=== PATIENT | female | born 1980 | race Hispanic/Latino ===

== ENCOUNTER → 2023-12-05 | Emergency (ER) | payer SELFPAY ==
[~2023-12-05] MED LIST: dexAMETHasone 10 MG/ML VIAL ONE
--- NOTE | 2023-12-05 17:31 | EDPHYS ---
Physician Documentation [facility] Name: Elda Weldon Age: 43 yrs Sex: Female : 1980 Arrival Date: 12/05/2023 Time: 17:10 Bed Waiting Private MD: ED Physician Inderjit Cavazos HPI: 12/05 17:29 This 43 yrs old Female presents to ER via Unassigned with complaints of POISON kb CHIQUITA. 17:30 Pt reports she came into contact with poison chiquita 1.5 weeks ago and has had a rash since kb then. Reports no relief with otc ointment. 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 - Social history:: Smoking status: Patient denies any tobacco usage or history of. ROS: 17:29 Constitutional: Negative for fever, chills, and weight loss, kb 17:29 Skin: Positive for rash, of the right arm and left arm, 17:29 All other systems are negative, Exam: 17:29 Constitutional: This is a well developed, well nourished patient who is awake, alert, kb and in no acute distress. Head/Face: Normocephalic, atraumatic. ENT: Moist Mucous membranes Cardiovascular: Regular rate Respiratory: Respirations even and unlabored. No increased work of breathing. Talking in full sentences MS/ Extremity: Pulses equal, no cyanosis. Neurovascular intact. Full, normal range of motion. Neuro: Awake and alert, GCS 15, oriented to person, place, time, and situation. Moves all extremities. Normal gait. 17:29 Skin: rash a moderate rash is noted, consistent with contact dermatitis, on the right arm and left arm, Vital Signs: 17:48 BP 121 / 77; Pulse 73; Resp 18 S; Temp 98(TE); Pulse Ox 99% on R/A; Weight 83.91 kg as6 (R); Height 5 ft. 4 in. (R); 17:48 Body Mass Index 31.75 (83.91 kg, 162.56 cm) as6 MDM: 17:18 Patient medically screened. kb 17:29 Differential diagnosis: impetigo, allergic reaction, parasite infection, urticaria. kb Data reviewed: vital signs, nurses notes. Counseling: I had a detailed discussion with the patient and/or guardian regarding the historical points, exam findings, and any diagnostic results supporting the discharge/admit diagnosis, the need for outpatient follow up, a family practitioner, to return to the emergency department if symptoms worsen or persist or if there are any questions or concerns that arise at home. Administered Medications: 17:40 Drug: Dexamethasone IM 10 mg IM once Route: IM; Site: right deltoid; as6 17:51 Follow up: Response: No adverse reaction as6 Disposition Summary: 12/05/23 17:31 Discharge Ordered Notes: Location: Home kb Condition: Stable kb Diagnosis - Allergic contact dermatitis due to plants, except food kb Followup: kb - With: Private Physician - When: 2 - 3 days - Reason: Recheck today's complaints, Continuance of care, Re-evaluation by your physician Followup: kb - With: Emergency Department - When: As needed - Reason: Worsening of condition Discharge Instructions: - Discharge Summary Sheet kb - Poison Chiquita Dermatitis, [id number] kb Forms: - Medication Reconciliation Form kb - Thank You Letter kb - Antibiotic Education kb - Prescription Opioid Use kb - Patient Portal Instructions kb - Leadership Thank You Letter kb Signatures: Sharonda Mary FNP-C FNP-Ckb Slawson, Ashby, RN RN as6
--- NOTE | 2023-12-05 17:52 | ER ---
Nurse's Notes [facility] Name: Elda Weldon Age: 43 yrs Sex: Female : 1980 Arrival Date: 12/05/2023 Time: 17:10 Bed Waiting Private MD: Diagnosis: Allergic contact dermatitis due to plants, except food Presentation: 12/05 17:49 Chief complaint: Patient states: poison yasmeen x 1.5 weeks. Coronavirus screen: At this as6 time, the client does not indicate any symptoms associated with coronavirus-19. Ebola Screen: No symptoms or risks identified at this time. Initial Sepsis Screen: Does the patient meet any 2 criteria? No. Patient's initial sepsis screen is negative. Does the patient have a suspected source of infection? No. Patient's initial sepsis screen is negative. Risk Assessment: Do you want to hurt yourself or someone else? Patient reports no desire to harm self or others. Onset of symptoms was November 26, 2023. 17:49 Acuity: SORIN 4 as6 17:49 Method Of Arrival: Ambulatory as6 Triage Assessment: 17:48 General: Appears in no apparent distress. Behavior is calm, cooperative. Pain: Denies as6 pain. Respiratory: Respiratory effort is even, unlabored, Respiratory pattern is regular, symmetrical. Derm: Rash noted that is itchy, papular, red, raised. 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 - Social history:: Smoking status: Patient denies any tobacco usage or history of. Screenin:50 [facility] ED Fall Risk Assessment (Adult) Score/Fall Risk Level 0 - 2 = Low Risk. Abuse as6 screen: Denies threats or abuse. Denies injuries from another. Nutritional screening: No deficits noted. Tuberculosis screening: No symptoms or risk factors identified. Vital Signs: 17:48 BP 121 / 77; Pulse 73; Resp 18 S; Temp 98(TE); Pulse Ox 99% on R/A; Weight 83.91 kg as6 (R); Height 5 ft. 4 in. (R); 17:48 Body Mass Index 31.75 (83.91 kg, 162.56 cm) as6 ED Course: 17:13 Patient arrived in ED. [id number] 17:13 Inderjit Cavazos MD is Attending Physician. ec2 17:18 Sharonda Mary FNP-C is [facility]. kb 17:47 Kunal Thorpe RN is Primary Nurse. as6 17:48 Arm band placed on. as6 17:50 Triage completed. as6 17:50 Bed in low position. Call light in reach. Provided Education on: follow up. as6 17:50 No provider procedures requiring assistance completed. Patient did not have IV access as6 during this emergency room visit. Administered Medications: 17:40 Drug: Dexamethasone IM 10 mg IM once Route: IM; Site: right deltoid; as6 17:51 Follow up: Response: No adverse reaction as6 Medication: 17:50 VIS not applicable for this client. as6 Outcome: 17:31 Discharge ordered by . kb 17:50 Discharged to home ambulatory, with family, as6 17:50 Condition: stable 17:50 Discharge instructions given to patient, family, Instructed on discharge instructions, follow up and referral plans. Demonstrated understanding of instructions, follow-up care, 17:51 Patient left the ED. as6 Signatures: Sharonda Mary FNP-C FNP-Ckb Jackson, Kandis kj1 Kunal Thorpe RN RN as6 Inderjit Cavazos MD MD ec2
[2023-12-05 19:37] VITALS: BP 121/77; TEMP 98; O2SAT 99
== END ==
LOC: ER 17:10
DX: L23.7 Allergic contact dermatitis due to plants, except food (principal)
CPT/HCPCS: 96372; 99284; J1100